=== PATIENT | male | born 1965 ===

== ENCOUNTER 2017-12-27 15:09 | Observation (INO) | payer BC, OTHER ==
[2017-12-27 15:16] VITALS: O2SAT 100
[2017-12-27] MEDS ORDERED: Sodium Chloride 0.9% 1,000 ML IV STA ×2 (15:16→15:58)
--- NOTE | 2017-12-27 15:30 | ED PDOC ---
HPI: Psych/Substance Abuse Time Seen by Provider: 12/27/17 15:11 Chief Complaint (Nursing): Altered Mental Status Chief Complaint (Provider): overdose History Per: Family (brother), Other ([place] [employer]) Onset/Duration Of Symptoms: Hrs (prior to arrival) Additional History Per: Patient, EMS Additional Complaint(s): Tomas Torrez is a 52 year old male, with a past medical history of heroine abu se and asthma, who was brought to the emergency department by EMS and [place] [employer] for overdose prior to arrival. History was obtained from police. Called was made to the scene by brother who reports patient just came out of the bathroom and passed out. Patient was found by police and volunteer ambulance [facility] with no pulse and not breathing. Bystanders started and police continued to give compressions. Narcan was given intranasally and patient became conscious. Patient reports he did only x1 bag of heroin IV and no other drugs. He hasnt used in a year but he used to use regularly. Patient currently reports feeling very cold and lightheaded with some chest pain. PMD: None provided. Past Medical History Reviewed: Historical Data, Nursing Documentation, Vital Signs Vital Signs: Last Vital Signs Temp 99.1 F 12/27/17 15:24 Pulse 97 H 12/27/17 15:24 Resp 24 12/27/17 15:24 BP 138/92 H 12/27/17 15:24 Pulse Ox 100 12/27/17 15:24 - Medical History PMH: Asthma Other PMH: heroin abuse - Surgical History Surgical History: No Surg Hx - Family History Family History: States: Unknown Family Hx - Social History Current smoker - smoking cessation education provided: Yes Alcohol: Social Drugs: Opiates (heroin ) - Allergies Allergies/Adverse Reactions: Allergies Allergy/AdvReac Type Severity Reaction Status Date / Time No Known Allergies Allergy Verified 12/27/17 15:12 Review of Systems ROS Statement: Except As Marked, All Systems Reviewed And Found Negative Cardiovascular: Positive for: Chest Pain, Light Headedness Physical Exam - Reviewed Nursing Documentation Reviewed: Yes Vital Signs Reviewed: Yes - Physical Exam Appears: Positive for: In Acute Distress (mild. somewhat lethargic) Head Exam: Positive for: ATRAUMATIC, NORMAL INSPECTION, NORMOCEPHALIC Skin: Positive for: Normal Color, Warm, Dry Eye Exam: Positive for: Normal appearance, EOMI, PERRL (2mm pupils) ENT: Positive for: Pharynx Is (clear), Other (blood in b/l nares and dry blood in mouth. Gag reflex intact. Tacky mucous membranes) Neck: Positive for: Normal, Painless ROM, Supple Cardiovascular/Chest: Positive for: Regular Rate, Rhythm, Other (Mild tenderness to palpation at chest). Negative for: Chest Non Tender, Murmur Respiratory: Positive for: Rhonchi (bilaterally). Negative for: Accessory Muscle Use, Wheezing, Respiratory Distress Gastrointestinal/Abdominal: Positive for: Normal Exam, Soft. Negative for: Tenderness, Guarding, Rebound Back: Positive for: Normal Inspection. Negative for: L CVA Tenderness, R CVA Tenderness, Vertebral Tenderness Extremity: Positive for: Normal ROM (Upper and lower extremities), Other (Cool). Negative for: Deformity Neurologic/Psych: Positive for: Alert (sleepy), Oriented (x3), Other (slight slurred speech). Negative for: Motor/Sensory Deficits - Laboratory Results Result Diagrams: 12/28/17 01:09 12/27/17 15:15 - ECG O2 Sat by Pulse Oximetry: 100 (RA) Pulse Ox Interpretation: Normal Medical Decision Making Medical Decision Making: Time: 15:11 Initial Impression: Heroin overdose and respiratory arrest resolved Initial Plan: --Type and screen --ABG Shock Panel --EKG --Alcohol serum --CMP --Drug screen, urine --Magnesium --Phosphorus --Troponin I --CBC w/ differential --PTT --PT --Chest portable [RAD] --Sodium Chloride 1,000 ml IV 150 mls/hr --Urinalysis --Reevaluation Time: 1740 --Patient maintaining normal respiration while in ED. Lactic acid improved, but patient is still lethargic. Discussed with Dr. Julien. Patient will be hospit alized to medical service for observation for opioid overdose. [id number] Pt reporting abdominal pain radiating from upper abdomen to lower abdomen. Scribe Attestation: Documented by Santiago Dumont, acting as a scribe for Maria Elena Faith MD. Provider Scribe Attestation: All medical record entries made by the Scribe were at my direction and personally dictated by me. I have reviewed the chart and agree that the record accurately reflects my personal performance of the history, physical exam, medical decision making, and the department course for this patient. I have also personally directed, reviewed, and agree with the discharge instructions and disposition. Disposition - Clinical Impression Clinical Impression: Opiate overdose - Disposition Disposition Time: 21:00 Condition: SERIOUS - Pt Status Changed To: Hospital Disposition Of: Observation - POA Present On Arrival: None
[2017-12-27 15:39] LABS: ABG ALLEN TEST YES; ARTERIAL BLOOD GAS HCO3 16.6 mmol/L (21-28); ARTERIAL BLOOD GAS O2 SAT 86.8 % (95-98); ARTERIAL BLOOD GAS PCO2 43 mm/Hg (35-45); ARTERIAL BLOOD GAS PH 7.22 (7.35-7.45); ARTERIAL BLOOD GAS PO2 50 mm/Hg (80-100); ARTERIAL BLOOD GAS TCO2 18.9 mmol/L (22-28)
[2017-12-27 15:44] LABS: BASO % 0.3 % (0.0-2.0); EOS # 0.3 K/uL (0.0-0.7); EOS % 2.6 % (0.0-4.0); HEMOGLOBIN 16.5 g/dL (12.0-18.0); LYMPH # 3.7 K/uL (1.0-4.3); LYMPH % 36.7 % (20.0-40.0); MEAN CELL VOLUME 94.1 fl (80.0-94.0); MEAN CORPUSCULAR HEMOGLOBIN 30.2 pg (27.0-31.0); MEAN CORPUSCULAR HGB CONC 32.1 g/dL (33.0-37.0); MEAN PLATELET VOLUME 8.8 fl (7.2-11.7); MONO # 0.5 K/uL (0.0-0.8); MONO % 5.3 % (0.0-10.0); NEUT # 5.6 K/uL (1.8-7.0); NEUT % 55.1 % (50.0-75.0); NRBC % 0.1 % (0.0-0.0); RBC 5.47 Mil/uL (4.40-5.90); RED CELL DISTRIBUTION WIDTH 14.4 % (11.5-14.5); WHITE BLOOD COUNT 10.2 K/uL (4.8-10.8)
--- NOTE | 2017-12-27 15:51 | RAD ---
Date of service: 12/27/2017 HISTORY: respiratory arrest COMPARISON: No prior. FINDINGS: LUNGS: Mild patchy areas of edema or ground-glass are seen in the upper lobes. No pneumothorax or pleural effusion is seen. PLEURA: No significant pleural effusion identified, no pneumothorax apparent. CARDIOVASCULAR: No aortic atherosclerotic calcification present. Normal cardiac size. No pulmonary vascular congestion. OSSEOUS STRUCTURES: No significant abnormalities. VISUALIZED UPPER ABDOMEN: Normal. OTHER FINDINGS: None. IMPRESSION: Minor patchy interstitial or alveolar changes. No pneumothorax or segmental infiltrate. No CHF.
[2017-12-27 16:05] LABS: INR 0.9; PROTHROMBIN TIME 10.5 Seconds (9.8-13.1)
[2017-12-27 16:08] LABS: ALB/GLOB RATIO 1.3 (1.0-2.1); ALBUMIN 4.4 g/dL (3.5-5.0); BLOOD UREA NITROGEN 14 mg/dl (9-20); GFR NON-AFRICAN AMERICAN 58; PARTIAL THROMBOPLASTIN TIME 37.3 Seconds (25.6-37.1)
[2017-12-27 16:16] LABS: ALT/SGPT 106 U/L (21-72); AST/SGOT 82 U/L (17-59)
[2017-12-27 16:55] LABS: BARBITURATES, UR NEGATIVE (NEGATIVE); BENZODIAZEPINES, UR NEGATIVE (NEGATIVE); OPIATES, UR POSITIVE (NEGATIVE); PHENCYCLIDINE, UR NEGATIVE (NEGATIVE)
[2017-12-27 17:01] LABS: URINE BILIRUBIN NEGATIVE (NEGATIVE); URINE BLOOD NEGATIVE (NEGATIVE); URINE CLARITY SLIGHTY-CLOUDY (Clear); URINE COLOR YELLOW (YELLOW); URINE GLUCOSE (UA) NEG (Normal); URINE LEUKOCYTE ESTERASE NEG Leu/uL (Negative); URINE PROTEIN 100 mg/dL (NEGATIVE); URINE UROBILINOGEN 0.2-1.0 mg/dL (0.2-1.0)
[2017-12-27] MEDS ORDERED: Iohexol 300 100 ML IJ ONE (22:52)
[2017-12-27] MEDS ORDERED: Sodium Chloride 0.9% 50 ML IV ONE (22:52)
[2017-12-28] MEDS ORDERED: Sodium Chloride 0.9% 1,000 ML IV STA (01:01)
--- NOTE | 2017-12-28 01:10 | ED PDOC ---
- Laboratory Results Result Diagrams: 12/28/17 01:09 12/27/17 15:15 - ECG O2 Sat by Pulse Oximetry: 100 (RA) Pulse Ox Interpretation: Normal - Critical Care Total Time (In Min): 60 Medical Decision Making Medical Decision Making: Time: 54 -- [facility] Rad radiologist contacted provider regarding CT results that show: CT ABD/PELVIS RESULTS IMPRESSION: 1. Scattered patchy ground glass opacities throughout both lung mccracken may represent atypical infection. 2. Diffuse abdominal and pelvic high density fluid compatible with hemoperitoneum with concentration in the epigastric region. 3. Small fat containing eft inguinal hernia is seen. 4. Prostate gland is mildly enlarged and contains calcifications. Please correlate with PSA levels. Electronically signed on Dec 28, 2017 12:36:42 AM EST by: Tomas Mann M.D., DANITA Certified By [facility] Fellowship Trained MRI and CT Specialist Pulmonary opacities could represent lung contusion due to trauma. Discussed with Dr Daugherty 12-38 AM EST. Addendum electronically signed by Tomas Mann M.D., MBA Certified By [facility] on December 28, 2017 12:43:45 AM EST Time: 54 Patient reassessed. Abdomen is distended, not rigid. Patient is awake, alert, oriented, with normal vital signs, speaking on his cell phone. Results given to patient. Time: 55 -- Consulted general surgeon, Dr. Johnson who recommends patient to be transferred to closest Trauma Center for further management. Time: 103 -- Spoke to surgeon, Dr. Johnny Neumann who accepts patient for transfer admission. Patient to be transferred ED to ED with a consult for surgeon Dr. Neumann. Spoke to ER attending, Dr. Wilson who was made aware and accepts patient for further management. Scribe Attestation: Documented by Melanie Farrell, acting as a scribe for Jesu Daugherty MD. Provider Scribe Attestation: All medical record entries made by the Scribe were at my direction and personally dictated by me. I have reviewed the chart and agree that the record accurately reflects my personal performance of the medical decision making and final disposition for this patient. I have also personally directed, reviewed, and agree with the discharge instructions and disposition. Disposition - Clinical Impression Clinical Impression: Hemoperitoneum - POA Present On Arrival: None - Disposition Disposition: Other Institution ([facility] [place] Disposition Time: 01:25 Condition: SERIOUS
[2017-12-28 01:26] VITALS: BP 115/66; PULSE 90; RESP 8; TEMP 98.4
[2017-12-28 01:47] LABS: HEMOGLOBIN 12.5 g/dL (12.0-18.0); MEAN CELL VOLUME 92.4 fl (80.0-94.0); MEAN CORPUSCULAR HEMOGLOBIN 29.8 pg (27.0-31.0); MEAN CORPUSCULAR HGB CONC 32.2 g/dL (33.0-37.0); RBC 4.21 Mil/uL (4.40-5.90); RED CELL DISTRIBUTION WIDTH 14.2 % (11.5-14.5); WHITE BLOOD COUNT 14.1 K/uL (4.8-10.8)
[2017-12-28] MEDS ORDERED: Lactated Ringer's 1,000 ML IV SCH (02:15)
--- NOTE | 2017-12-28 08:41 | CARD ---
APPROVED REPORT Date of service: 12/27/2017 EKG Measurement Heart [id number] <Conclusion> Sinus tachycardia Otherwise normal ECG
--- NOTE | 2017-12-28 15:24 | CT ---
Date of service: 12/27/2017 PROCEDURE: CT Chest, Abdomen and Pelvis with intravenous contrast HISTORY: post chest compressions, epigastric and abd pain COMPARISON: No prior studies TECHNIQUE: IV dose administered: 95 mL Radiation dose: Total exam DLP = 893.8 mGy-cm. This CT exam was performed using one or more of the following dose reduction techniques: Automated exposure control, adjustment of the mA and/or kV according to patient size, and/or use of iterative reconstruction technique. FINDINGS: CT CHEST WITH CONTRAST: LUNGS: Diffuse non specific patchy areas of ground-glass infiltrate greatest in the right upper lobe and left upper lobe as well as the medial right superior segment lower lobe region. Mild additional subsegmental atelectasis in the lingula and anterior left lower lobe. No appreciable pneumothorax. MEDIASTINUM: Thoracic inlet is unremarkable. No appreciable mediastinal adenopathy is noted. Aorta shows no evidence of intramural hematoma or intimal flap. Pulmonary arteries are unremarkable. No appreciable pneumomediastinum is seen. Visualized trachea is unremarkable. LYMPH NODES: Unremarkable. PLEURA: No significant pleural effusion or pneumothorax is noted. BONES: No appreciable sternal fracture or rib fracture is noted. Visualized costo manubrial junctions show no evidence of malalignment or appreciable fracture. Retrosternal region is unremarkable. OTHER FINDINGS: No pericardial fluid is seen. Visualized esophagus is unremarkable. CT ABDOMEN AND PELVIS: LIVER: Liver is diffusely fatty infiltrated without evidence of focal mass or liver laceration. Low-density ascites is seen overlying the liver. GALLBLADDER AND BILE DUCTS: Unremarkable. PANCREAS: No appreciable pancreatic enlargement is seen. There is a small amount of fluid within the lesser sac region extending towards the pancreas felt to be related to the process described below. SPLEEN: Mild ascites is seen overlying the spleen. Spleen is small in size without lesion. ADRENALS: Unremarkable. No mass. KIDNEYS AND URETERS: Small right renal cyst is noted. No hydronephrosis or perinephric changes are seen in the kidneys. Kidneys are normal in size. VASCULATURE: No aortic atherosclerotic calcification or mural plaque present. Unremarkable. No aortic aneurysm. BOWEL: There appears to be abnormal appearance of the mid transverse colon with wall thickening and pericolonic inflammatory changes identified. This is best seen on axial images 131 through 137 series 2 and coronal images 21 through 30. Just adjacent to this region is focal high density fluid or soft tissue measuring 5.4 x 5.7 by 2.7 centimeters. Finding may suggest localized colitis an abscess. There is a 2nd additional area of high density seen in the anterior abdomen measuring 2.2 x 2.8 x 1.9 centimeters seen on axial image 132 series 2. There also additional areas of induration and inflammatory change involving the adjacent mesentery. Stomach is distended with fluid. I could not exclude some mild thickening in the region of the gastric antrum which is also noted to lie adjacent to the larger area of enhancing soft tissue. Mild ileus of the small bowel is noted within the proximal to mid small bowel region with additional areas of higher density fluid noted extending into the left side of the abdomen. Abdominal and pelvic ascites is also noted extending inferiorly into the pericolic gutters. APPENDIX: Appendix is not well appreciated within the right lower quadrant region although no right lower quadrant inflammatory process is seen. Terminal ileum is unremarkable. PERITONEUM: Moderate amounts of abdominal and pelvic high density and low-density fluid are identified. No appreciable free intraperitoneal air is clearly seen. LYMPH NODES: No retroperitoneal adenopathy is seen. No significant mesenteric adenopathy is noted. No inguinal adenopathy is seen. BLADDER: Unremarkable. REPRODUCTIVE: Unremarkable. BONES: No acute fracture. OTHER FINDINGS: Degenerative changes are seen in the spine without compression fracture. There is no definite CT scan evidence of discitis or osteomyelitis. IMPRESSION: Abnormal examination with moderate inflammatory process in the mid abdomen involving portions of the mid transverse colon. There is rounded high density soft tissue or fluid seen adjacent to the transverse colon in the anterior abdomen. An element of hemoperitoneum in this region is not excluded. Localized bowel perforation in this area cannot be excluded. Portions of the inflammatory change are also noted extending into the lesser sac and right side of the abdomen and also adjacent to the gastric antrum which may have some mild thickening inferiorly. Source of the process from this region is less likely but not excluded. No definite CT scan evidence of pancreatitis although correlation with laboratory values would be suggested as there is some mild inflammatory change seen anterior to the pancreas without enlargement. Additional moderate abdominal and pelvic ascites, some of which have higher density are also seen which may also suggest some blood products and hemoperitoneum. Nonspecific scattered patchy ground-glass infiltrates in the lungs which may suggest an infectious or inflammatory process. No CT scan evidence of pulmonary embolism. Portions of the above report differ from the preliminary report including involvement of the mid transverse colon with inflammatory changes.
--- NOTE | 2017-12-28 23:03 | CP.PCM.PCO ---
Physician Communication Note - Physician Communication Note Physician Communication Note: Transferred to [facility] [place] before I see the pattientfor Hemoperitoneum.
== END 2017-12-28 07:07 | disposition short-term general hospital (02) ==
LOC: H.ER 15:09 → H.ERHOLD 17:27
PROVIDERS: ADMIT Internal Medicine; ATTEND Internal Medicine
DX: T40.1X1A Poisoning by heroin, accidental (unintentional), initial encounter (principal); Y92.9 Unspecified place or not applicable; F17.200 Nicotine dependence, unspecified, uncomplicated; J45.909 Unspecified asthma, uncomplicated; K40.90 Unilateral inguinal hernia, without obstruction or gangrene, not specified as recurrent; K66.1 Hemoperitoneum; R09.2 Respiratory arrest; F11.10 Opioid abuse, uncomplicated; R07.9 Chest pain, unspecified; R42 Dizziness and giddiness
CPT/HCPCS: 71045; 71260; 74177; 80053; 81003; 82803; 83605; 83735; 84100; 84484; 85025; 85027; 85610; 85730; 86850; 86900; 93005; 96374; 96375; 96376; 99285; G0378; G0480; J2270; J2405; J7030; J7042; Q9967